=== PATIENT | female | born 1990 | race Caucasian/White ===

== ENCOUNTER 2019-04-21 10:10 | Emergency (ER) | payer MEDICAID ==
[~2019-04-21] VITALS: Ht 165.1 cm; Wt 79.0 kg
[2019-04-21 10:15] VITALS: BP 154/65
[2019-04-21 10:51] VITALS: BP 135/80
== END 2019-04-21 10:51 | disposition home or self-care (01) ==
LOC: MED 10:10
DX: M79.89 Other specified soft tissue disorders (principal); T36.8X5A Adverse effect of other systemic antibiotics, initial encounter; Y92.89 Other specified places as the place of occurrence of the external cause; Z88.8 Allergy status to other drugs, medicaments and biological substances
CPT/HCPCS: 81002; 81025; 99283

== ENCOUNTER 2024-06-28 03:13 | Emergency (ER) | payer MEDICAID ==
[~2024-06-28] VITALS: Ht 165.1 cm; Wt 72.6 kg
[2024-06-28 03:19] VITALS: BP 139/84; PULSE 101; RESP 18; TEMP 98.2; O2SAT 99
[2024-06-28 03:25] VITALS: O2SAT 99
[2024-06-28] MEDS ORDERED: SULF-59 PO ×2 (04:02→23:57)
[2024-06-28] MEDS ORDERED: CEPH-588 PO ×2 (04:02→23:57)
[2024-06-28] MEDS ORDERED: IBUP-2213 PO (23:57)
== END 2024-06-28 04:00 | disposition home or self-care (01) ==
LOC: MED 03:13
DX: L02.31 Cutaneous abscess of buttock (principal); L03.317 Cellulitis of buttock; Z79.899 Other long term (current) drug therapy
CPT/HCPCS: 99284

== ENCOUNTER 2024-06-28 21:19 | Emergency (ER) | payer MEDICAID ==
[~2024-06-28] VITALS: Ht 165.1 cm; Wt 78.5 kg
[~2024-06-28 21:19] MED LIST: CEPH-588 PO; SULF-59 PO
[2024-06-28 21:23] VITALS: BP 144/94; PULSE 100; RESP 18; TEMP 98; O2SAT 100
[2024-06-28] MEDS ORDERED: SULF-59 PO (23:57)
[2024-06-28] MEDS ORDERED: IBUP-2213 PO (23:57)
[2024-06-28] MEDS ORDERED: CEPH-588 PO (23:57)
[2024-06-29 00:08] VITALS: BP 130/76; PULSE 69; RESP 19; TEMP 98; O2SAT 98
== END 2024-06-29 00:11 | disposition home or self-care (01) ==
LOC: MED 21:19
DX: L03.317 Cellulitis of buttock (principal); E11.9 Type 2 diabetes mellitus without complications; I10 Essential (primary) hypertension; Z87.448 Personal history of other diseases of urinary system; Z79.899 Other long term (current) drug therapy
CPT/HCPCS: 99284